=== PATIENT | male | born 1970 | race Caucasian/White ===

== ENCOUNTER 2016-10-31 14:13 | Emergency (ER) | payer OTHER ==
[2016-12-01] MEDS ORDERED: PREVACID PO (08:14)
[2016-12-01] MEDS ORDERED: NORCO 7.5-3251 EACH PO (11:59)
== END 2016-10-31 15:55 | disposition home or self-care (01) ==
LOC: ER1 14:13
DX: K40.90 Unilateral inguinal hernia, without obstruction or gangrene, not specified as recurrent (principal); F17.200 Nicotine dependence, unspecified, uncomplicated
CPT/HCPCS: 99283

== ENCOUNTER → 2016-12-01 | Day surgery (SDC) | payer OTHER ==
[~2016-12-01] MED LIST: NORCO 7.5-3251 EACH PO; PREVACID PO
== END | disposition home or self-care (01) ==
LOC: OR 07:39
PROVIDERS: Surgery
PROC: 0YU50JZ Supplement Right Inguinal Region with Synthetic Substitute, Open Approach (ICD-10-PCS; principal; 2016-12-01 08:55)
DX: K40.90 Unilateral inguinal hernia, without obstruction or gangrene, not specified as recurrent (principal); F31.9 Bipolar disorder, unspecified; B19.20 Unspecified viral hepatitis C without hepatic coma; F17.210 Nicotine dependence, cigarettes, uncomplicated; Z87.442 Personal history of urinary calculi; Z90.49 Acquired absence of other specified parts of digestive tract
CPT/HCPCS: C1781; J0690; J1200; J1885; J2250; J2405; J2710; J3010; J3370; J7030; J7120

== ENCOUNTER → 2022-05-21 | Outpatient (CLI) | payer OTHER | LOC: EXRD 05-08 08:45 | DX: R10.11 Right upper quadrant pain (principal); B19.20 Unspecified viral hepatitis C without hepatic coma; Z90.49 Acquired absence of other specified parts of digestive tract | CPT/HCPCS: 76705 ==